=== PATIENT | male | born 1945 | race Caucasian/White ===

== ENCOUNTER 2020-11-16 08:17 | Inpatient (IN) | payer MEDICARE, OTHER ==
[~2020-11-16] VITALS: Ht 172.7 cm; Wt 77.7 kg
[~2020-11-16 08:17] MED LIST: AMOXICILLIN 50500 MG PO; ASPI325T6 PO; ASPIR-LOW81 MG PO; CLOPIDOGREL PO; FLEXERIL 1010 MG/TAB PO; HEALTH CARE AM325 M1 PO; IMDUR 30MG30 MG/TAB PO; IMDUR30 MG PO; LIPITOR 40MG TA40 MG PO; LISINOPRIL PO; LISINOPRIL40 MG PO; NEXIUM 20MG CAP20 MG PO; NITROQUICK0.4 MG SL; NORCO 325 MG-51 TAB PO; PLAVIX 75MG TAB75 MG PO; TOPROL XL50 MG PO; TYLENOL 325MG325 MG PO; ZESTRIL40 MG PO; ZITHROMAX 250M250 MG PO; ZOCOR 80MG80 MG PO; ZOCOR80 MG PO
[2020-12-22] MEDS ORDERED: ASPIRIN E.C. 8181 MG PO (10:18)
[2020-12-22] MEDS ORDERED: LIPITOR 80MG80 MG PO (10:18)
[2020-12-22] MEDS ORDERED: PEPCID AC 10MG10 MG PO (10:19)
[2020-12-22] MEDS ORDERED: IMDUR 30MG30 MG/TAB PO ×2 (10:19→13:57)
[2020-12-22] MEDS ORDERED: FLOMAX 0.40.4 MG/CAP PO (10:20)
[2020-12-22] MEDS ORDERED: TOPROL XL 50MG50 MG PO (10:20)
[2020-12-22] MEDS ORDERED: D3-5050000 IU PO (10:21)
[2021-01-28] VITALS (12 sets, daily range): BP systolic 138–179; BP diastolic 58–70; PULSE 57–81; TEMP 97.4–98.4
[2021-01-28] MEDS ORDERED: TYLENOL 325MG325 MG PO (06:22)
[2021-01-28] MEDS ORDERED: PLAVIX 75MG TAB75 MG PO (06:25)
[2021-01-28] MEDS ORDERED: VITAMIN D 50,1.25 MG PO (06:26)
[2021-01-28] MEDS ORDERED: ISMO 20MG20 MG PO (06:28)
[2021-01-28] MEDS ORDERED: ZESTRIL40 MG PO (06:28)
--- NOTE | 2021-01-28 06:30 | NUR ---
TO RM 6 AT 0536- CALL LIGHT IN REACH SON AT BEDSIDE.
--- NOTE | 2021-01-28 06:32 | NUR ---
PATIENT STATED HE BROUGHT HIS MEDS TO DR SUTTON OFFICE AND THEY WROTE THEM DOWN. I USED THE H&P MED LIST
[2021-01-28 09:54] LABS: BASO % 0.3 % (0.0-2.0); EOS # 0.1 (0.0-0.7); EOS % 1.2 % (0-4.0); GRAN # 4.8 (1.4-6.5); GRAN % 79.3 % (42.2-75.2); HEMATOCRIT 38.5 % (42.0-52.0); HEMOGLOBIN 11.8 g/dl (13.5-18.0); LYMPH # 0.7 (1.2-3.4); LYMPH % 12.1 % (20.0-51.0); MEAN CELL VOLUME 86 fl (80.0-100.0); MEAN CORPUSCULAR HEMOGLOBIN 26 pg (27.0-31.0); MEAN CORPUSCULAR HGB CONC 31 g/dl (33.0-37.0); MEAN PLATELET VOLUME 9.9 fl (7.4-10.4); MONO # 0.4 (0.1-0.6); MONO % 6.8 % (1.7-9.3); PLATELET COUNT 171 K/mm3 (130-400); RED BLOOD COUNT 4.49 M/mm3 (4.20-5.60); REDCELL DISTRIBUTION WIDTH-CV 13.9 % (11.5-14.5)
[2021-01-28 10:04] LABS: CALCIUM 8.1 mg/dL (8.4-10.2); CREATININE, serum 0.91 (0.66-1.25); POTASSIUM 4.4 mmol/L (3.4-5.0)
--- NOTE | 2021-01-28 10:30 | NUR ---
Patient is back from surgery. He is drowsy and oriented. He denies pain at this time. No complaints of nausea. Lockhart secured to leg, urine yellow and clear. Incisions to abdomen well approximated. No drainage. Oriented patient to room, he is almost blind. Explained the plan for today. No other changes at this time. Call light within reach.
--- NOTE | 2021-01-28 18:45 | NUR ---
Patient has been doing well today. He is eating and drinking without issues. Denies nausea and pain at this time. Attemtped to get him up out of bed but he stated he did not feel steady enough to get up yet. No other changes at this time. Call light within reach.
--- NOTE | 2021-01-28 21:30 | NUR ---
Patient up and walking in the halls with his cane and standby assist. Patient ambulated well with direction on where to walk. 3 lap sites and midline incision to abdomen, edges well approximated. Indwelling catheter draining clear yellow urine to dependent drainage bag. Patient eating and drinking well. No complaints of pain or nausea.
[2021-01-29 01:14] VITALS: BP 169/65; PULSE 66; TEMP 98.4
[2021-01-29 04:52] VITALS: BP 167/62; PULSE 58; TEMP 97.7
--- NOTE | 2021-01-29 05:56 | NUR ---
Patient has no complaints of pain this morning. Encouraged to drink lots of water. Patient had 1150 mls of clear yellow urine out of his farias. Will report off to day shift.
[2021-01-29 06:31] LABS: BASO % 0.1 % (0.0-2.0); GRAN # 8.2 (1.4-6.5); GRAN % 84.2 % (42.2-75.2); HEMATOCRIT 37.6 % (42.0-52.0); HEMOGLOBIN 11.6 g/dl (13.5-18.0); LYMPH # 0.6 (1.2-3.4); LYMPH % 6.3 % (20.0-51.0); MEAN CELL VOLUME 84 fl (80.0-100.0); MEAN CORPUSCULAR HEMOGLOBIN 26 pg (27.0-31.0); MEAN CORPUSCULAR HGB CONC 31 g/dl (33.0-37.0); MEAN PLATELET VOLUME 10.3 fl (7.4-10.4); MONO # 0.9 (0.1-0.6); PLATELET COUNT 188 K/mm3 (130-400); RED BLOOD COUNT 4.46 M/mm3 (4.20-5.60); REDCELL DISTRIBUTION WIDTH-CV 14.1 % (11.5-14.5)
[2021-01-29 06:44] LABS: CALCIUM 8.7 mg/dL (8.4-10.2); CREATININE, serum 1.46 (0.66-1.25); POTASSIUM 4.6 mmol/L (3.4-5.0)
[2021-01-29 07:36] VITALS: BP 175/69; PULSE 56; TEMP 97.8
[2021-01-29 11:42] VITALS: BP 181/74; PULSE 55; TEMP 98
--- NOTE | 2021-01-29 12:00 | NUR ---
Patient resting in bed at thsi time. Patient is alert and oriented, answers questions appropriately. Lockhart removed per order. 10ml of water removed from balloon, catheter intact upon removal. Patient instructed to use the urinal and call nurse when he urinates. Patient was able to immediately void approximately 30 ml of pale yellow urine. Informed patient that he needed to void more prior to discharge and advised to drink water. Patient verbalized understanding, call light within reach.
[2021-01-29] MEDS ORDERED: NORCO 325 MG-51 TAB PO (12:10)
[2021-01-29] MEDS ORDERED: COLACE 100100 MG/CAP PO (12:10)
--- NOTE | 2021-01-29 13:06 | NUR ---
Chair Car Driver visited with patient while family was in room.
--- NOTE | 2021-01-29 14:13 | NUR ---
Plan is to return home with home health supports. [facility] met with patient about care plan. Patient reports that he resides in [place], [place] and has [place] [facility] supports with the [facility] that comes to [place]. Patient reports that he obtains all [facility] [place]. Patient reports that he has a PT.OT. and Nursing coming to his home. Patient reports that he is legally blind and uses a cane for mobility and sound depth. Patient shares that he also sees Dr. Linton for other care supports. Son Og [place], and Brother [facility] are supports to his care. Has friends that can transport him home. Thank for services, no additional supports are identified at this time.
[2021-01-29 15:49] VITALS: BP 186/67; PULSE 55; TEMP 97.8
--- NOTE | 2021-01-29 20:40 | NUR ---
PT'S SON ARRIVED TO TAKE PT HOME. PT IN [facility]. ESCORTED FROM [facility] IN WHEELCHAIR.
== END 2021-01-29 20:40 | disposition home or self-care (01) | DRG 661 ==
LOC: SURG 12-21 07:30 → INPTSU 01-28 05:29 → SURG 01-28 07:30
PROVIDERS: ADMIT Urology
PROC: 0TT14ZZ Resection of Left Kidney, Percutaneous Endoscopic Approach (ICD-10-PCS; principal; 2021-01-28 07:30)
DX: N28.89 Other specified disorders of kidney and ureter (principal); N40.0 Benign prostatic hyperplasia without lower urinary tract symptoms; H54.7 Unspecified visual loss; G47.00 Insomnia, unspecified; M19.90 Unspecified osteoarthritis, unspecified site; R73.03 Prediabetes; E78.5 Hyperlipidemia, unspecified; Z20.822 Contact with and (suspected) exposure to COVID-19; K21.9 Gastro-esophageal reflux disease without esophagitis; Z86.73 Personal history of transient ischemic attack (TIA), and cerebral infarction without residual deficits; I25.10 Atherosclerotic heart disease of native coronary artery without angina pectoris; Z95.1 Presence of aortocoronary bypass graft
CPT/HCPCS: A4314; J0360; J1650; J2250; J2704; J3010; J7030

== ENCOUNTER 2020-12-22 09:24 | Day surgery (SDC) | payer MEDICARE, OTHER ==
[~2020-12-22] VITALS: Ht 172.8 cm; Wt 73.8 kg
[2020-12-22] VITALS (12 sets, daily range): BP systolic 135–169; BP diastolic 62–83; PULSE 44–55; TEMP 98.6
[2020-12-22 10:16] LABS: HEMATOCRIT 39.8 % (42.0-52.0); HEMOGLOBIN 12.5 g/dl (13.5-18.0); MEAN CELL VOLUME 84 fl (80.0-100.0); MEAN CORPUSCULAR HEMOGLOBIN 26 pg (27.0-31.0); MEAN CORPUSCULAR HGB CONC 31 g/dl (33.0-37.0); MEAN PLATELET VOLUME 9.7 fl (7.4-10.4); PLATELET COUNT 217 K/mm3 (130-400); RED BLOOD COUNT 4.73 M/mm3 (4.20-5.60); REDCELL DISTRIBUTION WIDTH-CV 13.3 % (11.5-14.5)
[2020-12-22] MEDS ORDERED: ASPIRIN E.C. 8181 MG PO (10:18)
[2020-12-22] MEDS ORDERED: LIPITOR 80MG80 MG PO (10:18)
[2020-12-22] MEDS ORDERED: IMDUR 30MG30 MG/TAB PO ×2 (10:19→13:57)
[2020-12-22] MEDS ORDERED: PEPCID AC 10MG10 MG PO (10:19)
[2020-12-22 10:20] LABS: PROTHROMBIN TIME 11.5 SECONDS (9.7-12.8)
[2020-12-22] MEDS ORDERED: FLOMAX 0.40.4 MG/CAP PO (10:20)
[2020-12-22] MEDS ORDERED: TOPROL XL 50MG50 MG PO (10:20)
[2020-12-22] MEDS ORDERED: D3-5050000 IU PO (10:21)
[2020-12-22 10:23] LABS: PARTIAL THROMBOPLASTIN TIME 30.8 SECONDS (26.0-37.0)
[2020-12-22 10:26] LABS: CALCIUM 8.7 mg/dL (8.4-10.2); CREATININE, serum 0.9 (0.66-1.25); POTASSIUM 4.7 mmol/L (3.4-5.0)
--- NOTE | 2020-12-22 13:26 | NUR ---
SEE MERGE FOR ALL MEDICATION ADMINISTATION TIMES, INTRA AND POST SEDATION ASSESSMENTA
--- NOTE | 2020-12-22 14:00 | NUR ---
REport from Aicha JENKINS. Transferred by bed from Vice President Of Customer Service to 16. Right groin site CD&I, soft to palpation and good pedal pulses noted. VSS. Son bedside
--- NOTE | 2020-12-22 16:55 | NUR ---
Raised HOB to 15 dgrees, right groin remains soft to palpation and pt denies pain at this time
--- NOTE | 2020-12-22 17:50 | NUR ---
INT discontinued intact. Assisted in pt getting dressed. Discharge instructions given.
--- NOTE | 2020-12-22 18:15 | NUR ---
Transferred to private car by sri. Gave discharge instructions to son Og Espinosa as well.
== END 2020-12-22 18:15 | disposition home or self-care (01) ==
LOC: COL.CAR 09:24
PROVIDERS: Internal Medicine Cardiovascular Disease
DX: I25.10 Atherosclerotic heart disease of native coronary artery without angina pectoris (principal); E78.2 Mixed hyperlipidemia; I10 Essential (primary) hypertension; H54.7 Unspecified visual loss; Z79.82 Long term (current) use of aspirin; Z79.899 Other long term (current) drug therapy; Z95.1 Presence of aortocoronary bypass graft; Z87.891 Personal history of nicotine dependence; Z83.3 Family history of diabetes mellitus; Z80.9 Family history of malignant neoplasm, unspecified
CPT/HCPCS: C1760; C1769; C1894; J1644; J2250; J3010; Q9967

== ENCOUNTER → 2021-01-19 | Outpatient (CLI) | payer OTHER ==
[~2021-01-19] MED LIST changes: +ASPIRIN E.C. 8181 MG PO; +COLACE 100100 MG/CAP PO; +D3-5050000 IU PO; +FLOMAX 0.40.4 MG/CAP PO; +ISMO 20MG20 MG PO; +LIPITOR 80MG80 MG PO; +PEPCID AC 10MG10 MG PO; +TOPROL XL 50MG50 MG PO; +VITAMIN D 50,1.25 MG PO
[2021-01-19 15:11] LABS: HEMATOCRIT 40.3 % (42.0-52.0); HEMOGLOBIN 12.6 g/dl (13.5-18.0); MEAN CELL VOLUME 85 fl (80.0-100.0); MEAN CORPUSCULAR HEMOGLOBIN 27 pg (27.0-31.0); MEAN CORPUSCULAR HGB CONC 31 g/dl (33.0-37.0); MEAN PLATELET VOLUME 9.8 fl (7.4-10.4); PLATELET COUNT 212 K/mm3 (130-400); RED BLOOD COUNT 4.76 M/mm3 (4.20-5.60)
[2021-01-19 15:20] LABS: CALCIUM 8.7 mg/dL (8.4-10.2); CREATININE, serum 0.84 (0.66-1.25); POTASSIUM 4.4 mmol/L (3.4-5.0)
== END ==
LOC: COL.RAD 13:56
PROVIDERS: Urology
DX: R93.422 Abnormal radiologic findings on diagnostic imaging of left kidney (principal)
CPT/HCPCS: Q9967

== ENCOUNTER → 2021-09-07 | Outpatient (CLI) | payer OTHER | LOC: COL.RAD 08:02 | DX: C64.2 Malignant neoplasm of left kidney, except renal pelvis (principal); K80.20 Calculus of gallbladder without cholecystitis without obstruction; Z90.5 Acquired absence of kidney | CPT/HCPCS: Q9967 ==

== ENCOUNTER → 2022-04-13 | Outpatient (CLI) | payer OTHER | LOC: COL.RAD 11:10 | DX: C64.2 Malignant neoplasm of left kidney, except renal pelvis (principal); K80.20 Calculus of gallbladder without cholecystitis without obstruction; Z90.5 Acquired absence of kidney | CPT/HCPCS: Q9967 ==

== ENCOUNTER 2023-12-19 10:53 | Emergency (ER) | payer OTHER ==
[~2023-12-19] VITALS: Ht 165.1 cm; Wt 79.1 kg
[2023-12-19] MEDS ORDERED: hydrALAZINE 20 MG/ML 1 ML VIAL IV ONE ×3 (11:15→16:00)
[2023-12-19 11:44] LABS: BASO # 0.1 K/mm3 (0.0-0.2); BASO % 0.7 % (0.0-2.0); EOS # 0.1 K/mm3 (0.0-0.7); EOS % 1.2 % (0.0-4.0); GRAN # 5.2 K/mm3 (1.4-6.5); GRAN % 76.5 % (42.2-75.2); HEMOGLOBIN 14.9 g/dl (13.5-18.0); LYMPH # 0.9 K/mm3 (1.2-3.4); LYMPH % 12.7 % (20.0-51.0); MEAN CELL VOLUME 83 fl (80.0-100.0); MEAN CORPUSCULAR HEMOGLOBIN 26 pg (27-31); MEAN CORPUSCULAR HGB CONC 32 g/dl (33.0-37.0); MEAN PLATELET VOLUME 10.1 fl (7.4-10.4); MONO # 0.6 K/mm3 (0.1-0.6); MONO % 8.8 % (1.7-9.3); PLATELET COUNT 200 K/mm3 (130-400); RED BLOOD COUNT 5.66 M/mm3 (4.20-5.60); REDCELL DISTRIBUTION WIDTH-CV 13.8 % (11.5-14.5)
[2023-12-19 12:08] LABS: ALBUMIN 4.1 g/dL (3.4-4.8); CALCIUM 9.7 mg/dL (8.4-10.2); CREATININE, serum 1.62 mg/dL (0.72-1.25); POTASSIUM 4.2 mEq/L (3.5-4.5)
[2023-12-19 12:16] LABS: TROPONIN-I 0.021 ng/mL (0.00-0.033)
[2023-12-19] MEDS ORDERED: LR 1,000 ML IV SCH (13:00)
[2023-12-19] MEDS ORDERED: Lidocaine PF 2% (20 MG/ML) 5 ML VIAL ONE (14:09)
[2023-12-19] MEDS ORDERED: Labetalol 100 MG/20 ML Multi-Dose VIAL ONE (14:37)
[2023-12-19] MEDS ORDERED: Ondansetron 4 MG/2 ML VIAL ONE (14:37)
[2023-12-19] MEDS ORDERED: hydrALAZINE 20 MG/ML 1 ML VIAL IV PRN (15:45)
[2023-12-19] MEDS ORDERED: fentaNYL 50 MCG/ML 1 ML SYRINGE/VIAL [PACU/SDC ONLY] IV PRN (15:45)
[2023-12-19] MEDS ORDERED: Ondansetron 4 MG/2 ML VIAL IV PRN (15:45)
[2023-12-19] MEDS ORDERED: Ondansetron 4 MG/2 ML VIAL IV ONE (16:00)
[2023-12-19 16:56] VITALS: BP 172/71; PULSE 61; TEMP 96.9
== END 2023-12-19 16:50 | disposition other institution (70) ==
LOC: COL.ER 10:53
PROVIDERS: Emergency Medicine
DX: T18.128A Food in esophagus causing other injury, initial encounter (principal); I10 Essential (primary) hypertension; Z87.891 Personal history of nicotine dependence
CPT/HCPCS: C1726; J0360; J1920; J2405; J2704

== ENCOUNTER 2024-04-18 06:51 | Day surgery (SDC) | payer MEDICARE, OTHER ==
[~2024-04-18] VITALS: Ht 165.1 cm; Wt 78.9 kg
[~2024-04-18 06:51] MED LIST changes: +LR 1,000 ML IV SCH; +Ondansetron 4 MG/2 ML VIAL IV PRN
[2024-04-18] MEDS ORDERED: Lidocaine PF 2% (20 MG/ML) 5 ML VIAL ONE (07:50)
[2024-04-18 09:22] VITALS: BP 162/90; PULSE 60
[2024-04-18 09:35] VITALS: BP 180/85; PULSE 56
[2024-04-18 09:50] VITALS: BP 176/82; TEMP 97.5
--- NOTE | 2024-04-18 10:10 | NUR ---
0922 RETURNS TO ROOM 7 PER CART. AWAKE, AELRT. RESP UNLABORED. AMBULATES TO RECLINER WITH STANDBY ASSIST. DENIES DISCOMFORT OR DYSPHAGIA. VITAL SIGNS OBTAINED. CALL LIGHT AT SIDE 0935 TOLERATES PO JUICE AND PUDDING WITHOUT NAUSEA. SWALLOWS WITHOUT DIFFICULTY 0945 DISCHARGE INSTRUCTIONS REVIEWED. PATIENT VERBALIZES UNDERSTANDING. COPY PROVIDED IN DISCHARGE FOLDER 1000 DRESSES SELF
[2024-04-18 15:15] VITALS: BP 191/94; PULSE 54; TEMP 97.1
[2024-04-18] MEDS ORDERED: PRALUENT P150 MG/1 M SQ (15:21)
[2024-04-18] MEDS ORDERED: ZETIA 10MG TAB10 MG PO (15:22)
[2024-04-18] MEDS ORDERED: PROTONIX 40MG T40 MG PO (15:23)
[2024-04-18] MEDS ORDERED: IMDUR 60MG60 MG/TAB PO (15:30)
== END 2024-04-18 10:10 | disposition home or self-care (01) ==
LOC: SDCO 06:51
DX: K22.4 Dyskinesia of esophagus (principal); K25.9 Gastric ulcer, unspecified as acute or chronic, without hemorrhage or perforation; B96.81 Helicobacter pylori [H. pylori] as the cause of diseases classified elsewhere; Z87.11 Personal history of peptic ulcer disease
CPT/HCPCS: J2704; J7120